=== PATIENT | female | born 1950 | race Caucasian/White ===

== ENCOUNTER → 2020-12-18 | Outpatient (CLI) | payer MEDICARE, OTHER | END | disposition home or self-care (01) | LOC: RESCLI 14:04 | PROVIDERS: ATTEND Internal Medicine | DX: N95.2 Postmenopausal atrophic vaginitis (principal); E03.9 Hypothyroidism, unspecified; E78.5 Hyperlipidemia, unspecified; Z79.899 Other long term (current) drug therapy ==

== ENCOUNTER → 2021-03-19 | Outpatient (CLI) | payer MEDICARE, OTHER | END | disposition home or self-care (01) | LOC: RESCLI 02:30 | PROVIDERS: ATTEND Internal Medicine | DX: E03.9 Hypothyroidism, unspecified (principal); E78.5 Hyperlipidemia, unspecified; N95.2 Postmenopausal atrophic vaginitis; Z79.899 Other long term (current) drug therapy; Z88.1 Allergy status to other antibiotic agents; Z88.8 Allergy status to other drugs, medicaments and biological substances; Z87.891 Personal history of nicotine dependence; M85.80 Other specified disorders of bone density and structure, unspecified site; Z98.890 Other specified postprocedural states ==

== ENCOUNTER → 2021-09-30 | Outpatient (CLI) | payer MEDICARE, OTHER | END | disposition home or self-care (01) | LOC: RESCLI 04:23 | PROVIDERS: ATTEND Internal Medicine | DX: N95.2 Postmenopausal atrophic vaginitis (principal); E78.5 Hyperlipidemia, unspecified; E03.9 Hypothyroidism, unspecified; Z79.899 Other long term (current) drug therapy; M85.88 Other specified disorders of bone density and structure, other site; Z88.8 Allergy status to other drugs, medicaments and biological substances; Z79.82 Long term (current) use of aspirin ==

== ENCOUNTER → 2022-03-31 | Outpatient (CLI) | payer MEDICARE, OTHER | END | disposition home or self-care (01) | LOC: RESCLI 14:16 | PROVIDERS: ATTEND Family Medicine | DX: E03.9 Hypothyroidism, unspecified (principal); E78.5 Hyperlipidemia, unspecified; M85.88 Other specified disorders of bone density and structure, other site; Z88.1 Allergy status to other antibiotic agents; Z88.8 Allergy status to other drugs, medicaments and biological substances; Z98.890 Other specified postprocedural states; Z72.89 Other problems related to lifestyle; Z79.899 Other long term (current) drug therapy ==

== ENCOUNTER → 2023-08-06 | Outpatient (CLI) | payer MEDICARE, OTHER | END | disposition home or self-care (01) | LOC: RESCLI 00:27 | PROVIDERS: ATTEND Internal Medicine | DX: E03.9 Hypothyroidism, unspecified (principal); E78.5 Hyperlipidemia, unspecified; Z79.890 Hormone replacement therapy; Z98.890 Other specified postprocedural states; Z87.891 Personal history of nicotine dependence; Z88.8 Allergy status to other drugs, medicaments and biological substances; Z79.899 Other long term (current) drug therapy ==

== ENCOUNTER → 2024-07-26 | Outpatient (CLI) | payer MEDICARE, OTHER | LOC: RESCLI 01:06 | PROVIDERS: ATTEND Student in an Organized Health Care Education/Training Program | DX: E03.9 Hypothyroidism, unspecified (principal); E78.5 Hyperlipidemia, unspecified; K21.9 Gastro-esophageal reflux disease without esophagitis; R06.02 Shortness of breath; Z00.00 Encounter for general adult medical examination without abnormal findings; Z79.890 Hormone replacement therapy ==